=== PATIENT | female | born 1995 | race Caucasian/White ===

== ENCOUNTER → 2020-05-03 14:45 | Outpatient (BNVA) | payer MEDICAID, SELFPAY | PROVIDERS: Visit Provider Advanced Practice Midwife | DX: Z76.89 Persons encountering health services in other specified circumstances (principal) ==

== ENCOUNTER → 2020-05-18 14:49 | Outpatient (BNVA) | payer MEDICAID, SELFPAY | PROVIDERS: Visit Provider Advanced Practice Midwife | DX: O99.343 Other mental disorders complicating pregnancy, third trimester (principal); F43.9 Reaction to severe stress, unspecified; Z3A.29 29 weeks gestation of pregnancy; Z23 Encounter for immunization | CPT/HCPCS: 90686; 90715 ==

== ENCOUNTER 2020-07-05 12:57 | Outpatient (REF) | payer MEDICAID, SELFPAY ==
[2020-07-05 16:04] LABS: Hematocrit 29.8 % (37-47); Hemoglobin 9.3 g/dl (12.0-16.0); Mean Corpuscular HGB Conc 31.2 g/dl (31.0-35.0); Mean Corpuscular Hemoglobin 24.1 pg (27.0-33.0); Mean Corpuscular Volume 77.2 fL (80-98); Platelet Count 204 X10*3/uL (160-400); Red Blood Count 3.86 X10*6/uL (4.20-5.50); Red Cell Distribution Width 15.2 % (11.0-16.0); White Blood Count 9.8 X10*3/uL (4.8-10.8)
[2020-07-05 16:26] LABS: Glucose 1 Hour 136 mg/dL
[2020-07-05 16:49] LABS: Syphilis Screen Nonreactive (Nonreactive)
[2020-07-06 04:32] LABS: HIV AB/AG Nonreactive (Nonreactive); HIV Num 1 0.16 S/CO (0.00-0.99)
[2020-07-06 21:57] LABS: C. trachomatis RNA TMA NOT DETECTED (NOT DETECTED); N. gonorrhoeae RNA TMA NOT DETECTED (NOT DETECTED)
== END 2020-07-05 12:58 | disposition home or self-care (01) ==
LOC: HO.LNP 12:57
PROVIDERS: Absent Provider Advanced Practice Midwife; Visit Provider Advanced Practice Midwife
DX: Z34.90 Encounter for supervision of normal pregnancy, unspecified, unspecified trimester (principal)
CPT/HCPCS: 36415; 81003; 82951; 85027; 86780; 87081; 87389; 87491; 87591; 99212

== ENCOUNTER → 2020-07-19 14:48 | Outpatient (BNVA) | payer MEDICAID, SELFPAY | PROVIDERS: Visit Provider Advanced Practice Midwife | DX: Z34.93 Encounter for supervision of normal pregnancy, unspecified, third trimester (principal) | CPT/HCPCS: 81003; 99212 ==

== ENCOUNTER 2021-03-31 10:33 | Outpatient (REF) | payer MEDICAID, SELFPAY ==
[2021-04-01 02:47] LABS: CT PCR NOT DETECTED (Not Detect.); NG PCR NOT DETECTED (Not Detect.)
[2021-04-01 08:46] LABS: BV Int Neg Control Negative (Negative); BV Int Pos Control Positive (Positive)
== END 2021-03-31 10:34 | disposition home or self-care (01) ==
LOC: HO.LAB 10:33
PROVIDERS: Visit Provider Advanced Practice Midwife
DX: Z01.411 Encounter for gynecological examination (general) (routine) with abnormal findings (principal); N89.8 Other specified noninflammatory disorders of vagina; Z20.2 Contact with and (suspected) exposure to infections with a predominantly sexual mode of transmission
CPT/HCPCS: 87480; 87491; 87510; 87591; 87660

== ENCOUNTER → 2021-09-26 10:59 | Outpatient (BNVA) | payer MEDICAID, SELFPAY | PROVIDERS: Visit Provider Advanced Practice Midwife | DX: Z34.80 Encounter for supervision of other normal pregnancy, unspecified trimester (principal) | CPT/HCPCS: 81025; 99212 ==

== ENCOUNTER → 2021-09-29 13:53 | Outpatient (BNVA) | payer MEDICAID, SELFPAY | PROVIDERS: Visit Provider Advanced Practice Midwife | DX: Z34.92 Encounter for supervision of normal pregnancy, unspecified, second trimester (principal); Z3A.24 24 weeks gestation of pregnancy | CPT/HCPCS: 99212 ==

== ENCOUNTER 2021-09-30 08:57 | Outpatient (REF) | payer MEDICAID, SELFPAY ==
--- NOTE | ~2021-09-30 | US_ITS ---
EXAMINATION: US OBSTETRICAL CLINICAL INFORMATION: 26-year-old at the 24.5 weeks of gestation Late to care Screening for anomaly COMPARISON: None TECHNIQUE: Real-time transabdominal ultrasound was performed using C1-5 megahertz transducer. FINDINGS: A single, active, fetus is seen in vertex presentation. The placenta is posterior without previa, and the amniotic fluid volume is wnl. MEASUREMENTS: 1. Biparietal Diameter: 5.7 cm; 23.4 wks 2. Occipital Frontal Diameter: 7.4 cm 3. Head Circumference: 21.7 cm; 23.6 wks 4. Abdominal Circumference: 19.4 cm; 24.1 wks 5. Femur Length: 4.5 cm; 25.0 wks 6. Humerus Length: 4.2 cm; 25.2 wks 7. Tibia Length: 3.97 cm; 25.2 wks 8. Ulna Length: 3.7 cm; 24.5 wks 9. Lateral ventricle: 0.35 cm 10. Cerebellum: 2.6 cm; 24.6 wks 11. Cisterna Magna: 0.5 cm 12. Nuchal Fold: 4.3 mm 13. Heart Rate: 146 beats per minute Rt ovary: normal Lt ovary: normal Cervical length 3.2 cm on T/A. GESTATIONAL AGE: 1. Established GA: 24.5 wks 2. GA from [facility]: 24.1 wks ESTIMATED DATE OF DELIVERY: 1. Established MERLYN: 01/15/2022 2. MERLYN from [facility]: 01/19/2022 ANATOMY: The visualized anatomy includes but not limited to: 1. Cranium: Normal 2. Intracranial anatomy: cavum septum pellucidi, lateral ventricles, choroid plexus, cerebellum, posterior fossa, third and fourth ventricles. 3. face: orbits, lip/palate, profile, nasal bone 4. Heart: four-chamber view of the heart, ventricular septum, foramen ovale, pulmonary vein, left and right outflow tracts, three-vessel view, 3 vessel trachea view, aortic and ductal arches, situs.. 5. Diaphragm: Normal 6. Abdominal wall: Normal 7. Cord Insertion: Normal 8. Spine: Cervical, thoracic, lumbar, sacral. 9. Stomach: Normal size and shape 10. Right Kidney: Normal 11. Left Kidney: Normal 12. 3 vessel cord: Normal 13. Upper extremity: Open hands, fifth digit. 14. Lower extremity: Tibia, fibula, bilateral feet. 15. Bladder: Normal 16. Genitalia: Female, patient aware US/US OB /maternal detail IMPRESSION: 1. Single, living, intrauterine with appropriate biometry. 2. Normal survey DISCUSSION: I reviewed today's ultrasound findings. We discussed the limitations of ultrasound in diagnosing aneuploidy and other congenital abnormalities. I reviewed the differences between screening test and diagnostic test. Amniocentesis was discussed and declined. She was informed that the baseline incidence of congenital abnormalities is approximately 3-5%. Not all these conditions are diagnosable in utero. RECOMMENDATIONS: 1. A follow-up growth in the 4 weeks is been scheduled. 2. N IPT was ordered Thank you for allowing me to participate in her care. Total time 30 minutes. The time spent was devoted to counseling the patient about the disease and diagnosis, coordinating care including reviewing her records, pertinent lab data and studies, as well as discussing diagnostic evaluation and workup, plan therapeutic interventions and future disposition of care. This includes any additional research needed to obtain further information in formulating the plan of care of this patient. This note was generated with a voice recognition program. Please excuse any errors which may have been overlooked during my review of this note. Sometimes these errors may affect the content or meaning of a given sentence.
== END 2021-09-30 08:58 | disposition home or self-care (01) ==
LOC: HO.US 08:57
PROVIDERS: Visit Provider Obstetrics & Gynecology
DX: Z34.92 Encounter for supervision of normal pregnancy, unspecified, second trimester (principal)
CPT/HCPCS: 76811

== ENCOUNTER 2022-01-13 15:08 | Outpatient (REF) | payer MEDICAID, SELFPAY ==
[2022-01-13 17:46] LABS: Hematocrit 30.1 % (37.0-47.0); Hemoglobin 9.4 g/dl (12.0-16.0); Mean Corpuscular HGB Conc 31.2 g/dl (31.0-35.0); Mean Corpuscular Hemoglobin 23.1 pg (27.0-33.0); Platelet Count 190 X10*3/uL (160-400); Red Blood Count 4.07 X10*6/uL (4.20-5.50); White Blood Count 10.1 X10*3/uL (4.8-10.8)
[2022-01-13 17:56] LABS: PLT ABN DIST 1
[2022-01-13 18:06] LABS: Glucose 1 Hour PP 50gm Dose 156 mg/dL (60-140)
[2022-01-13 18:29] LABS: Amphetamine Screen Urine Not Detected (Not Detect); Barbiturates, Urine Not Detected (Not Detect); Benzodiazepines Screen Urine Not Detected (Not Detect); Cannabinoid Screen Urine Not Detected (Not Detect); Cocaine Screen Urine Not Detected (Not Detect); Fentanyl, urine Not Detected (Not Detect); Opiate Screen Urine Not Detected (Not Detect); Phencyclidine Screen Urine Not Detected (Not Detect)
[2022-01-13 19:20] LABS: Syphilis Screen Nonreactive (Nonreactive)
[2022-01-14 04:32] LABS: CT PCR NOT DETECTED (Not Detect.); NG PCR NOT DETECTED (Not Detect.)
[2022-01-14 11:28] LABS: BV Int Neg Control Negative (Negative); BV Int Pos Control Positive (Positive)
[2022-01-15 02:02] LABS: Rubella IgG Antibody 3.06 Index
[2022-01-16 07:51] LABS: HBsAGNum1 0.45 S/CO (0.00-0.99); HIV AB/AG Nonreactive (Nonreactive); HIV Num 1 0.14 S/CO (0.00-0.99); Hepatitis B Surface Antigen Negative (Negative); ~HepC Num1 0.05 S/CO (0.00-0.79); ~Hepatitis C Antibody Nonreactive (Nonreactive)
[2022-01-18 10:33] LABS: Hematocrit 31.8 % (35.0-45.0); Hemoglobin 9.5 g/dL (11.7-15.5); MCH 22.9 pg (27.0-33.0); MCV 76.6 fL (80.0-100.0); RBC 4.15 Million/uL (3.80-5.10); RDW 17.1 % (11.0-15.0)
== END 2022-01-13 15:09 | disposition home or self-care (01) ==
LOC: HO.LAB 15:08
PROVIDERS: Visit Provider Advanced Practice Midwife
DX: O09.33 Supervision of pregnancy with insufficient antenatal care, third trimester (principal); O09.893 Supervision of other high risk pregnancies, third trimester; Z3A.39 39 weeks gestation of pregnancy
CPT/HCPCS: 80307; 81003; 83020; 85014; 85018; 85027; 85041; 86762; 86780; 86787; 86803; 86850; 86900; 87081; 87086; 87147; 87340; 87389; 87480; 87491; 87510; 87591; 87660; 99212